=== PATIENT | male | born 1945 | race Caucasian/White ===

== ENCOUNTER 2023-07-26 06:00 | Day surgery (SDC) | payer OTHER, SELFPAY ==
[2023-07-10 09:47] VITALS: BMI 30.1
[2023-07-10 10:21] LABS: Hematocrit 42.2 % (39.0-52.0); Hemoglobin 14.4 g/dL (13.0-18.0); Mean Corp Hgb Conc. 34.1 g/dL (33.0-37.0); Mean Corpuscular Hgb 32.1 pg (27.0-31.0); Mean Platelet Volume 10.2 fL (7.4-10.4); Platelet Count 192 10^3/uL (130-400); Red Blood Cell Count 4.49 10^6/uL (4.70-6.10); White Blood Cell Count 7.1 10^3/uL (4.8-10.8)
[2023-07-10 10:50] LABS: Blood Urea Nitrogen 15 mg/dl (9-20); Calcium 9.9 mg/dl (8.4-10.2); Carbon Dioxide 28 mmol/L (22-30); Chloride 101 mmol/L (98-107); Estimated Creatinine Clearance 83 ml/min; Glucose 66 mg/dl (70-99); Potassium 4.4 mmol/L (3.5-5.1); Sodium 137 mmol/L (135-145); eGFR > 60.00
[2023-07-26] VITALS (7 sets, daily range): BP systolic 134–159; BP diastolic 73–87; BMI 30.1
[2023-07-26] MEDS: TYLENOL 1000 MG PO (06:48)
[2023-07-26] MEDS: NORMOSOL-R 1000 IV (06:55)
--- NOTE | 2023-07-26 07:04 | W.SUR.PREOP ---
Pre-Operative Surgical Note
-
I have examined this patient prior to the performance of the scheduled procedure.
The patient's condition is unchanged from the time of the current History and
Physical and the patient is able to undergo the scheduled procedure.
--- NOTE | 2023-07-26 09:17 | W.IMMPOSTOP ---
Addendum entered and electronically signed by Sabino Springer MD 07/26/23 09:27:
#[id number]
Original Note:
Surgical Immed Post Op Note
-
Primary Surgeon: Gian
Assisting Surgeon: Eufemia MONTES
Pre-op Diagnosis: Recurrent left inguinal hernia
Post-op Diagnosis: Recurrent left inguinal hernia
Procedure Performed: Open Cullen mesh repair recurrent left inguinal hernia
Anesthesia Type: MAC +1% lidocaine/0.25% Marcaine
Specimen / Cultures: None
Estimated Blood Loss: 10 mL
Complications: None immediate
Operative Findings: Recurrent left indirect inguinal hernia. Moderate scarring of hernia sac to cord structures and internal ring reflective of previous history of inguinal herniorrhaphy. Hernia sac ligated after mobilization and reduced. On-lay
tension-free Cullen repair with 7.5 x 15 cm Bard soft mesh.
== END 2023-07-26 10:42 | disposition home or self-care (01) ==
LOC: SDS 06:00
PROVIDERS: ATTENDING PHYSICIAN Surgery; FAMILY PHYSICIAN Family Medicine
DX: K40.91 Unilateral inguinal hernia, without obstruction or gangrene, recurrent (principal)
CPT/HCPCS: 49520; 36415; 80048; 85027; 93005

== ENCOUNTER → 2024-01-13 07:03 | Outpatient (REF) | payer OTHER, SELFPAY | LOC: HWRCS 07:03 | PROVIDERS: ATTENDING PHYSICIAN Family Medicine | DX: R60.0 Localized edema (principal) | CPT/HCPCS: 93306 ==

== ENCOUNTER 2024-10-16 12:51 | Outpatient (RCR) | payer OTHER, SELFPAY | END 2024-10-16 23:59 | disposition home or self-care (01) | LOC: RPT 12:51 | PROVIDERS: ATTENDING PHYSICIAN Physician Assistant Medical; FAMILY PHYSICIAN Family Medicine | DX: S46.212D Strain of muscle, fascia and tendon of other parts of biceps, left arm, subsequent encounter (principal); M25.512 Pain in left shoulder; Z73.6 Limitation of activities due to disability; X58.XXXD Exposure to other specified factors, subsequent encounter | CPT/HCPCS: 97010; 97110; 97112; 97140; 97161 ==

== ENCOUNTER 2024-10-21 11:49 | Outpatient (RCR) | payer OTHER, SELFPAY | END 2024-10-22 07:40 | disposition home or self-care (01) | LOC: RPT 11:49 | PROVIDERS: ATTENDING PHYSICIAN Physician Assistant Medical; FAMILY PHYSICIAN Family Medicine | DX: S46.212D Strain of muscle, fascia and tendon of other parts of biceps, left arm, subsequent encounter (principal); M25.512 Pain in left shoulder; Z73.6 Limitation of activities due to disability; X58.XXXD Exposure to other specified factors, subsequent encounter | CPT/HCPCS: 97110; 97112; 97140 ==